=== PATIENT | male | born 1960 | race Caucasian/White ===

== ENCOUNTER 2023-12-20 15:10 | Emergency (ER) | payer MEDICAID ==
[~2023-12-20] VITALS: Ht 167.6 cm; Wt 104.5 kg
[2023-12-20 15:50] LABS: BASO # 0.04 K/mm3 (0.02-0.10); EOS % 1.5 % (0.0-4.0); HEMATOCRIT 39.1 % (42.0-52.0); HEMOGLOBIN 13.8 g/dL (13.5-18.0); LYMPH# 1.72 K/mm3 (1.50-4.00); MEAN CELL VOLUME 83 fl (78-100); MEAN CORPUSCULAR HEMOGLOBIN 29 pg (27-31); MEAN CORPUSCULAR HGB CONC 35 g/dL (33-37); MEAN PLATELET VOLUME 10.2 fl (7.4-10.4); MONO # 0.69 K/mm3 (0.20-0.80); NEU # 4.17 K/mm3 (1.40-6.50); PLATELET COUNT 227 K/mm3 (130-400); RED BLOOD COUNT 4.71 M/mm3 (4.20-5.60); RED CELL DISTRIBUTION WIDTH 12.2 % (11.5-14.5); WHITE BLOOD COUNT 6.7 K/mm3 (4.8-10.8)
[2023-12-20 15:55] LABS: ALBUMIN 4.1 g/dL (3.4-4.8)
[2023-12-20 15:56] LABS: SODIUM 132 mmol/L (136-145)
[2023-12-20 15:57] LABS: CALCIUM 9.5 mg/dL (8.3-10.5)
[2023-12-20 15:58] LABS: GLUCOSE 235 mg/dL (75-110)
[2023-12-20 15:59] LABS: CARBON DIOXIDE 26 mmol/L (23-31)
[2023-12-20 16:00] LABS: TOTAL BILIRUBIN 0.7 mg/dL (0.2-1.2)
[2023-12-20 16:02] LABS: ALCOHOL IN-HOUSE < 10 mg/dL (<10)
[2023-12-20 16:03] LABS: AST-SGOT 27 U/L (5-34)
[2023-12-20 16:05] LABS: ALT/SGPT 24 U/L (0-55)
[2023-12-20 16:06] LABS: ACETAMINOPHEN < 1 ug/mL
[2023-12-20 16:36] LABS: URINE WBC 0 /hpf (0-3)
[2023-12-20 16:45] LABS: PH-URINE 6.5 (5.0 - 8.0); URINE APPEARANCE CLEAR (CLEAR); URINE BILIRUBIN NEGATIVE (NEGATIVE); URINE BLOOD NEGATIVE (NEGATIVE); URINE COLOR YELLOW (YELLOW); URINE GLUCOSE 1+ (NEGATIVE); URINE KETONE NEGATIVE (NEGATIVE); URINE LEUKOCYTE ESTERASE NEGATIVE (NEGATIVE); URINE NITRATE NEGATIVE (NEGATIVE); URINE PROTEIN(semi-quant) NEGATIVE (NEGATIVE)
[2023-12-20 21:28] VITALS: BP 117/73
== END 2023-12-20 21:30 | disposition home or self-care (01) ==
LOC: ED 15:10
PROVIDERS: Family Medicine
DX: F20.9 Schizophrenia, unspecified (principal)